=== PATIENT | male | born 1945 | race Caucasian/White ===

== ENCOUNTER → 2019-01-09 | Day surgery (SDC) | payer MEDICARE, OTHER ==
[~2019-01-09] MED LIST: Lactated Ringers 1,000 ML IV SCH; Propofol 200 MG/20 ML SDV IV ONE
--- NOTE | 2019-01-09 14:55 | OR ---
DATE OF OPERATION: 01/09/2019 PREOPERATIVE DIAGNOSIS: ALTERED BOWEL HABITS IN THE FORM OF DIARRHEA. POSTOPERATIVE DIAGNOSIS: ALTERED BOWEL HABITS IN THE FORM OF DIARRHEA. SURGEON: Frantz Tavarez MD PROCEDURE: DIAGNOSTIC COLONOSCOPY WITH RANDOM BIOPSIES X4. ANESTHESIA: MAC. COMPLICATIONS: None. SPECIMEN: Random colon biopsies x4 at cecum, hepatic flexure, sigmoid and rectal vault. FINDINGS: 1. Full-length colonoscopy. 2. Moderate sigmoid diverticulosis. 3. No signs of obvious etiology of patient's diarrhea. RECOMMENDATIONS: Followup with primary provider. INDICATIONS: The patient is a 73-year-old who has been having altered bowel habits in the form of diarrhea. He was sent for diagnostic colonoscopy after workup thus far has been negative. DESCRIPTION OF PROCEDURE: The patient was prepped and draped, placed in the left lateral decubitus position. A lubricated Olympus colonoscope was inserted and with relative ease advanced to the cecum. The patient does have fairly significant diverticular disease, but once past the sigmoid colon, the scope advanced without any issue. We were able to directly visualize the ileocecal valve and appendiceal orifice. We could not get into the valve, it was a very tricky angle to get in there, could not see the terminal ileum. Upon withdrawal, throughout the entire length of the colon, I could find no signs of any polyps, mass, ulceration, or bleeding sites. No vascular abnormalities or signs of colitis. The patient does have sigmoid diverticulosis moderate in severity. Total of 4 random biopsies were done, 1 at the cecum, hepatic flexure, sigmoid colon, and rectal vault. Retroflexion of scope in the rectum showed a lot of perianal hemorrhoid disease, otherwise benign. Air was suctioned, scope removed without complication. ALISON/CARLIN /[id number]
[2019-01-09 15:56] VITALS: BP 128/64; PULSE 81
== END ==
LOC: CC.SDS 10:00
PROVIDERS: ATTEND Family Medicine
DX: R19.7 Diarrhea, unspecified (principal); K57.30 Diverticulosis of large intestine without perforation or abscess without bleeding; K64.9 Unspecified hemorrhoids; K21.9 Gastro-esophageal reflux disease without esophagitis; M19.90 Unspecified osteoarthritis, unspecified site; E78.5 Hyperlipidemia, unspecified; I10 Essential (primary) hypertension; F41.9 Anxiety disorder, unspecified; E11.9 Type 2 diabetes mellitus without complications; Z79.899 Other long term (current) drug therapy; Z87.891 Personal history of nicotine dependence
CPT/HCPCS: 45380; J7120; 00811; 88305; J2704

== ENCOUNTER → 2019-03-06 | Day surgery (SDC) | payer MEDICARE, OTHER ==
[~2019-03-06] MED LIST changes: +Acetaminophen/oxyCODONE 325-5 MG Tab PO PRN; -Propofol 200 MG/20 ML SDV IV ONE; +Sodium Chloride 0.9% 10 ML Syringe FLUSH PRN; +ceFAZolin 1 GM Vial IVPUSH ONE
--- NOTE | 2019-03-06 16:03 | OR ---
DATE OF OPERATION: 03/06/2019 PREOPERATIVE DIAGNOSIS: CHRONIC CHOLECYSTITIS, CHOLELITHIASIS. POSTOPERATIVE DIAGNOSIS: CHRONIC CHOLECYSTITIS, CHOLELITHIASIS. SURGEON: Uli Tsai MD PROCEDURE: LAPAROSCOPIC CHOLECYSTECTOMY. ANESTHESIA: General. ESTIMATED BLOOD LOSS: Minimum. SPECIMEN: Gallbladder and stone. INDICATIONS: This 73-year-old male has a large single gallstone in his gallbladder. [place] and would like to have this removed, so he does not have problems as he leaves the country. DESCRIPTION OF PROCEDURE: After adequate preparation, an infraumbilical incision was made and a Veress needle placed intra-abdominally for insufflation. A 5-mm trocar and scope were introduced into the abdomen. Three other trocars were placed under direct vision. Examination of the abdomen is normal. He does have a small contracted gallbladder with a palpable large stone in the fundus of the gallbladder. He had some adhesions of the omentum and duodenum around the body and Lopez's pouch of the gallbladder. These were taken down by blunt, sharp, and cautery dissection. The cystic triangle structures were dissected free. They were each triply clipped and divided. The gallbladder was then taken off the liver bed using cautery dissection. There was no spillage of bile or stones. The gallbladder was placed within a sterile retrieval bag and brought out through the epigastric trocar site. The abdomen was then desufflated. The fascia of the umbilical and epigastric site were closed with 0 Vicryl and 4-0 Vicryl was used for the skin. The gallbladder was opened on the back table and did contain 1 large gallstone. BPB/MODL /[id number]
--- NOTE | 2019-03-07 08:48 | PCM.SN ---
- Free Text/Narrative Note: VSS. Moderate bloating. No flatus. Minimal pain. PO tolerated OK. Wounds clean and dry. Will give fleets enema if patient requests. FU as needed. Otherwise can discharge. No restrictions. Percocet #20 given for pain.
[2019-03-07 14:53] VITALS: BP 136/59; PULSE 74
== END | disposition home or self-care (01) ==
LOC: CC.SDS 10:42
PROVIDERS: ATTEND Surgery
DX: K80.10 Calculus of gallbladder with chronic cholecystitis without obstruction (principal); I10 Essential (primary) hypertension; E78.5 Hyperlipidemia, unspecified; E11.9 Type 2 diabetes mellitus without complications; F41.9 Anxiety disorder, unspecified; K21.9 Gastro-esophageal reflux disease without esophagitis; M19.90 Unspecified osteoarthritis, unspecified site; Z79.899 Other long term (current) drug therapy; Z79.84 Long term (current) use of oral hypoglycemic drugs; Z87.891 Personal history of nicotine dependence
CPT/HCPCS: 47562; J0690; J7120

== ENCOUNTER 2021-03-07 22:35 | Emergency (ER) | payer MEDICARE, OTHER ==
[2021-03-07] MEDS: Morphine 2 MG/ML SYRINGE IM ONE (22:55)
[2021-03-07 23:21] VITALS: BP 149/89; PULSE 104
== END 2021-03-07 23:55 | disposition home or self-care (01) ==
LOC: CC.ED 22:35
DX: M54.50 Low back pain, unspecified (principal); F11.23 Opioid dependence with withdrawal; I10 Essential (primary) hypertension; E11.9 Type 2 diabetes mellitus without complications; K21.9 Gastro-esophageal reflux disease without esophagitis; Z79.899 Other long term (current) drug therapy; Z79.84 Long term (current) use of oral hypoglycemic drugs; Z87.39 Personal history of other diseases of the musculoskeletal system and connective tissue
CPT/HCPCS: 36415; 80053; 84484; 85025; 86140; 93005; 96372; 99284-25; J2270

== ENCOUNTER 2021-03-20 11:25 | Observation (INO) | payer OTHER, MEDICARE ==
[2021-03-20] MEDS ORDERED: Ondansetron 4 MG/2 ML SDV IVPUSH STA (11:47)
[2021-03-20] MEDS ORDERED: Meclizine 12.5 MG Tab PO ONE (13:35)
[2021-03-20] MEDS ORDERED: CYPROHEPTADINE HCL 4 MG PO PRN (15:08)
[2021-03-20] MEDS ORDERED: Meclizine 12.5 MG Tab PO PRN (15:13)
[2021-03-20] MEDS ORDERED: Ondansetron 4 MG Tab.DIS PO PRN (15:13)
[2021-03-20] MEDS: cloNIDine 0.1 MG Tab ** OWN MED PO SCH (20:23)
[2021-03-20] MEDS: METOPROLOL TARTRATE 50 MG PO SCH (20:24)
[2021-03-21 07:33] LABS: CHLORIDE,CL 104 mEq/L (98-106); SODIUM,NA 140 mEq/L (136-145)
[2021-03-21] MEDS ORDERED: Non-Formulary Medication 1 Each (Lisinopril [Lisinopril] 40 MG Tablet) PO SCH (08:00)
[2021-03-21] MEDS ORDERED: amLODIPine 10 MG Tab ** OWN MED PO SCH (08:00)
[2021-03-21] MEDS: LISINOPRIL 40 MG PO SCH (08:23)
[2021-03-21] MEDS: Furosemide 20 MG Tab ** OWN MED PO SCH (08:24)
[2021-03-21] MEDS: METOPROLOL TARTRATE 50 MG PO SCH ×2 (08:24→19:40)
[2021-03-21] MEDS: ATORVASTATIN CALCIUM 40 MG PO SCH (08:25)
[2021-03-21 10:13] LABS: CORONAVIRUS COVID-19 NAA NEGATIVE (NEGATIVE)
[2021-03-21] MEDS ORDERED: Magnesium Sulfate/Water 2 GM in Premix Bag 1 BAG IV SCH (10:30)
[2021-03-21] MEDS: Sodium Chloride 0.9% 1,000 ML IV SCH (10:40)
[2021-03-21] MEDS: Acetaminophen 500 MG Tab PO PRN ×2 (10:40→19:43)
[2021-03-21] MEDS ORDERED: Magnesium Sulfate/Water 2 GM in Premix Bag 1 BAG IV ONE (11:15)
[2021-03-21] MEDS: cloNIDine 0.1 MG Tab ** OWN MED PO SCH (19:40)
[2021-03-22] MEDS: Sodium Chloride 0.9% 1,000 ML IV SCH (02:51)
[2021-03-22] MEDS: METOPROLOL TARTRATE 50 MG PO SCH (07:42)
[2021-03-22] MEDS: Furosemide 20 MG Tab ** OWN MED PO SCH (07:43)
[2021-03-22] MEDS: ATORVASTATIN CALCIUM 40 MG PO SCH (07:44)
[2021-03-22] MEDS: LISINOPRIL 40 MG PO SCH (07:44)
[2021-03-22] MEDS ORDERED: amLODIPine 10 MG Tab ** OWN MED PO SCH (08:00)
[2021-03-22 08:23] LABS: CHLORIDE,CL 104 mEq/L (98-106); SODIUM,NA 141 mEq/L (136-145)
[2021-03-22] MEDS: Acetaminophen 500 MG Tab PO PRN (11:33)
[2021-03-22] MEDS ORDERED: Magnesium Sulfate/Water 2 GM in Premix Bag 1 BAG IV ONE (12:30)
[2021-03-22 13:13] VITALS: BP 125/72; PULSE 79
== END 2021-03-22 15:36 | disposition home or self-care (01) ==
LOC: CC.ED 11:25 → UNDOADMOB 14:40 → CC.MS 14:40
PROVIDERS: ADMIT Nurse Practitioner Family; ATTEND Family Medicine
DX: H81.10 Benign paroxysmal vertigo, unspecified ear (principal); I10 Essential (primary) hypertension; K21.9 Gastro-esophageal reflux disease without esophagitis; E11.9 Type 2 diabetes mellitus without complications; Z79.899 Other long term (current) drug therapy; Z20.822 Contact with and (suspected) exposure to COVID-19
CPT/HCPCS: 0240U; 36415; 70450; 80048; 80053; 81001; 83735; 83880; 85025; 86140; 96365; 96366; 96374; 96376; 99285-25; A9270-GY; G0378; J2405; J3475; J7030; U0002